=== PATIENT | male | born 1945 | race Caucasian/White ===

== ENCOUNTER → 2016-09-14 | Outpatient (CLI) | payer BC, OTHER | END | disposition home or self-care (01) | DX: M17.11 Unilateral primary osteoarthritis, right knee (principal) | CPT/HCPCS: 97150 GO; 97165 GO ==

== ENCOUNTER 2016-10-10 22:12 | Inpatient (IN) | payer BC, OTHER ==
[~2016-10-10] VITALS: Ht 185.4 cm; Wt 92.7 kg
[~2016-10-10 22:12] MED LIST: IRON325 M1 PO; LIPITOR80 MG PO; TRAMADOL HCL50 MG PO
[2016-10-11 10:31] VITALS: BP 125/76
[2016-10-11 16:43] VITALS: BP 126/67
[2016-10-11 19:05] VITALS: BP 114/67
[2016-10-12 00:26] VITALS: BP 107/56
[2016-10-12 04:18] VITALS: BP 123/61
[2016-10-12 05:31] LABS: HEMATOCRIT 34.6 % (38.0-50.0); MCV 99.4 FL (86-99)
[2016-10-12 06:04] LABS: ANION GAP 4 MEQ/L (2-14); CHLORIDE 104 MEQ/L (99-109); GFR ESTIMATE (CALCULATED) > 59 mL/min/; GLUCOSE 108 mg/dL (70-99); POTASSIUM 4.5 MEQ/L (3.7-5.4); SAMPLE HEMOLYSIS CHECK 0; SAMPLE ICTERIC CHECK 0; SAMPLE LIPEMIA CHECK 0; SODIUM 141 MEQ/L (136-147); UREA NITROGEN (BUN) 17 mg/dL (9-23)
[2016-10-12 08:15] VITALS: BP 114/58
[2016-10-12 11:38] VITALS: BP 105/59
[2016-10-12 15:37] VITALS: BP 98/60
[2016-10-12 19:37] VITALS: BP 126/61
[2016-10-13 00:25] VITALS: BP 120/76
[2016-10-13 04:36] VITALS: BP 128/72
[2016-10-13 07:07] LABS: HEMATOCRIT 34.4 % (38.0-50.0); MCV 99.4 FL (86-99)
[2016-10-13] MEDS ORDERED: ENDOCET 5-3251 EACH PO (08:14)
[2016-10-13] MEDS ORDERED: SENNA PLUS TAB1 EACH PO (08:14)
[2016-10-13] MEDS ORDERED: ELIQUIS2.5 MG PO (08:14)
[2016-10-13 08:22] VITALS: BP 115/77
[2016-10-13 12:14] VITALS: BP 124/74
== END 2016-10-13 15:12 | DRG 470 ==
LOC: ENRESERV 22:12 → 2SOUTH 10-11 09:23 → 3WEST 10-11 16:33
PROVIDERS: Orthopaedic Surgery
PROC: 0SRC0J9 Replacement of Right Knee Joint with Synthetic Substitute, Cemented, Open Approach (ICD-10-PCS; principal; 2016-10-11)
DX: M17.11 Unilateral primary osteoarthritis, right knee (principal); E78.5 Hyperlipidemia, unspecified; H93.19 Tinnitus, unspecified ear; M54.2 Cervicalgia; M54.9 Dorsalgia, unspecified; Z87.891 Personal history of nicotine dependence
CPT/HCPCS: 80048; 85014; 85018; C1713; J0690; J1100; J1885; J2405; J3010; J7050; J7120